=== PATIENT | male | born 1960 | race African-American/Black ===

== ENCOUNTER 2018-03-12 11:32 | Inpatient (IN) | payer MEDICARE, OTHER ==
[~2018-03-12] VITALS: Ht 167.6 cm; Wt 98.4 kg
[~2018-03-12 11:32] MED LIST: ALBU18HF2 INH; AMLO10TA80 PO; ASPI-1158 PO; B50 PO; BECL8.7A5 INH; BUPR300T54 PO; CLON0.3T PO; DICL75TA5 PO; HYDR-4009 PO; HYDR100T31 PO; LABE300T3 PO; METH-612 PO; NIFE60TA77 PO; PANT40TA4 PO; PENT400T11 PO; SIMV20TA6 PO; TRAZ-212 PO; TRIA1TAB3 PO
[2018-03-12] MEDS ORDERED: GLIM2TAB2 PO (19:02)
[2018-03-12] MEDS ORDERED: LEVO100T9 PO (19:02)
[2018-03-12] MEDS ORDERED: XALAO EACHEYE (19:02)
[2018-03-12] MEDS ORDERED: LISI40TA4 PO (19:02)
[2018-03-12] MEDS ORDERED: DORZ10DR9 EACHEYE (19:02)
[2018-03-12] MEDS ORDERED: METO-385 PO (19:02)
[2018-03-12] MEDS ORDERED: ATOR80TA PO (19:02)
[2018-03-12] MEDS ORDERED: DOCU100T PO (19:02)
[2018-03-12] MEDS ORDERED: FURO40TA5 PO (19:02)
[2018-03-12] MEDS ORDERED: ASPI-986 PO (19:02)
[2018-03-12] MEDS ORDERED: CLOP75TA16 PO (19:02)
[2018-03-12] MEDS ORDERED: POTA10CA42 PO (19:02)
[2018-03-12] MEDS ORDERED: PANT20TA3 PO (19:02)
[2018-03-12 20:17] LABS: BASOPHILS % 0.8 % (0.0-2.0); EOSINOPHILS % 2.5 % (0.0-5.0); HEMATOCRIT. 38.9 % (42.0-52.0); HEMOGLOBIN. 12.7 g/dL (14.0-18.0); LYMPHOCYTES % 53.5 % (20.0-50.0); MEAN CORPUSCULAR HEMOGLOBIN 26.8 pg (28.0-32.0); MEAN PLATELET VOLUME 9.6 fl (7.4-10.4); MONOCYTES % 9.4 % (2.0-8.0); NEUTROPHILS % 33.8 % (40.0-76.0); PLATELET 265 x1000/uL (130-400); RED BLOOD CELL COUNT 4.74 mill/uL (4.7-6.1); RED CELL DISTRIBUTION WIDTH 16.8 % (11.6-14.6)
[2018-03-12 20:24] LABS: PROTHROMBIN TIME 9.8 sec (9.1-11.1)
[2018-03-12 20:28] LABS: CHLORIDE 104 mEq/L (98-107)
[2018-03-13] VITALS (9 sets, daily range): BP systolic 120–193; BP diastolic 68–98
[2018-03-13] MEDS ORDERED: BRIM5DRO6 EACHEYE ×2 (00:06→00:12)
[2018-03-13] MEDS ORDERED: CLONIDINE 0.1MG TABLET PO PRN (00:30)
[2018-03-13] MEDS ORDERED: DEXTROSE 50% WATER 50ML SYRINGE IV PRN (00:30)
[2018-03-13] MEDS ORDERED: IPRATROPIUM/ALBUTEROL 0.5-3(2.5)MG/3ML NEB HHN PRN (00:30)
[2018-03-13] MEDS ORDERED: MORPHINE SULFATE 4 MG/ML CPJ (NOT FOR IM USE) IV PRN (01:11)
[2018-03-13] MEDS: BLOOD SUGAR DIAGNOSTIC STRIP TEST SCH ×3 (05:59→16:49)
[2018-03-13] MEDS: INSULIN LISPRO 100 UNITS/ML SUBCUT SCH ×3 (06:07→17:15)
[2018-03-13 07:03] LABS: BASOPHILS % 0.8 % (0.0-2.0); EOSINOPHILS % 2.7 % (0.0-5.0); HEMATOCRIT. 37.5 % (42.0-52.0); HEMOGLOBIN. 12.1 g/dL (14.0-18.0); LYMPHOCYTES % 37.8 % (20.0-50.0); MEAN CORPUSCULAR HEMOGLOBIN 26.2 pg (28.0-32.0); MEAN CORPUSCULAR VOLUME 81.3 fL (80.0-94.0); MEAN PLATELET VOLUME 9.4 fl (7.4-10.4); MONOCYTES % 13.5 % (2.0-8.0); NEUTROPHILS % 45.2 % (40.0-76.0); PLATELET 242 x1000/uL (130-400); RED BLOOD CELL COUNT 4.62 mill/uL (4.7-6.1); RED CELL DISTRIBUTION WIDTH 16.5 % (11.6-14.6)
[2018-03-13 07:17] LABS: CHLORIDE 105 mEq/L (98-107)
[2018-03-13 07:29] LABS: HDL CHOLESTEROL 63 mg/dL (40-59); LDL CHOLESTEROL 95 mg/dL (5-100); T4 FREE 1.22 ng/dL (0.76-1.46)
[2018-03-13] MEDS: BRIMONIDINE 0.2% OPHTH DROPS 5ML EACHEYE SCH ×2 (08:36→17:00)
[2018-03-13] MEDS ORDERED: BARIUM SULFATE 176 GM SUSP.RECON ONE (14:26)
[2018-03-13] MEDS ORDERED: LATANOPROST 0.005% OPHTH DROPS 2.5ML EACHEYE SCH (21:00)
[2018-03-13] MEDS ORDERED: ATORVASTATIN CALCIUM 10MG TABLET PO SCH (21:00)
== END 2018-03-13 21:18 | disposition home or self-care (01) | DRG 199 ==
LOC: ER 11:32 → EDBEDREQ 17:53 → 5WST 21:16 → EDBEDREQTM 21:18 → EDBEDREQ 21:18 → ENRESERV 21:51
PROVIDERS: ADMIT Internal Medicine; ATTEND Internal Medicine
PROC: 5A09357 Assistance with Respiratory Ventilation, Less than 24 Consecutive Hours, Continuous Positive Airway Pressure (ICD-10-PCS; principal; 2018-03-13)
DX: I10 Essential (primary) hypertension (principal); I69.351 Hemiplegia and hemiparesis following cerebral infarction affecting right dominant side; F01.50 Vascular dementia, unspecified severity, without behavioral disturbance, psychotic disturbance, mood disturbance, and anxiety; J02.9 Acute pharyngitis, unspecified; M19.90 Unspecified osteoarthritis, unspecified site; R79.89 Other specified abnormal findings of blood chemistry; E11.9 Type 2 diabetes mellitus without complications; E78.5 Hyperlipidemia, unspecified; R13.10 Dysphagia, unspecified; G47.30 Sleep apnea, unspecified; Z87.891 Personal history of nicotine dependence; I69.321 Dysphasia following cerebral infarction; Z88.8 Allergy status to other drugs, medicaments and biological substances; Z79.82 Long term (current) use of aspirin; Z79.899 Other long term (current) drug therapy; I69.391 Dysphagia following cerebral infarction
CPT/HCPCS: 36415; 70360; 70551; 71045; 74230; 80048; 80061; 82962; 84439; 84443; 92610; 92611; 93005; 99285

== ENCOUNTER 2018-06-07 20:09 | Emergency (ER) | payer MEDICARE ==
[~2018-06-07] VITALS: Ht 172.7 cm; Wt 118.0 kg
[~2018-06-07 20:09] MED LIST changes: -ALBU18HF2 INH; -AMLO10TA80 PO; -ASPI-1158 PO; +ASPI-986 PO; +ATOR80TA PO; -B50 PO; -BECL8.7A5 INH; +BRIM5DRO6 EACHEYE; -BUPR300T54 PO; -CLON0.3T PO; +CLOP75TA16 PO; -DICL75TA5 PO; +DOCU100T PO; +FURO40TA5 PO; +GLIM2TAB2 PO; -HYDR-4009 PO; -LABE300T3 PO; +LEVO100T9 PO; -METH-612 PO; +METO-385 PO; -NIFE60TA77 PO; +PANT20TA3 PO; -PANT40TA4 PO; -PENT400T11 PO; +POTA10CA42 PO; -SIMV20TA6 PO; -TRAZ-212 PO; -TRIA1TAB3 PO; +XALAO EACHEYE
[2018-06-07] MEDS ORDERED: CLONIDINE 0.2MG TABLET PO ONE (20:45)
[2018-06-07 21:20] LABS: BASOPHILS % 0.9 % (0.0-2.0); EOSINOPHILS % 2.4 % (0.0-5.0); HEMATOCRIT. 41.6 % (42.0-52.0); HEMOGLOBIN. 13.5 g/dL (14.0-18.0); LYMPHOCYTES % 48.3 % (20.0-50.0); MEAN CORPUSCULAR HEMOGLOBIN 25.9 pg (28.0-32.0); MEAN CORPUSCULAR VOLUME 80.3 fL (80.0-94.0); MONOCYTES % 8.1 % (2.0-8.0); NEUTROPHILS % 40.3 % (40.0-76.0); PLATELET 243 x1000/uL (130-400); RED BLOOD CELL COUNT 5.19 mill/uL (4.7-6.1); RED CELL DISTRIBUTION WIDTH 15.9 % (11.6-14.6)
[2018-06-07 21:26] LABS: CHLORIDE 104 mEq/L (98-107); PARTIAL THROMBOPLASTIN TIME 28.2 sec (23.4-31.0); PROTHROMBIN TIME 10.1 sec (9.1-11.1)
[2018-06-08] MEDS ORDERED: NIFEDIPINE XL 90MG TAB PO ONE (08:15)
[2018-06-08] MEDS ORDERED: CARVEDILOL 25MG TABLET PO ONE (08:15)
[2018-06-08 11:22] VITALS: BP 200/77
== END 2018-06-08 11:29 | disposition home or self-care (01) ==
LOC: ER 20:09
DX: I10 Essential (primary) hypertension (principal); J45.909 Unspecified asthma, uncomplicated; E11.9 Type 2 diabetes mellitus without complications; R53.1 Weakness; Z86.73 Personal history of transient ischemic attack (TIA), and cerebral infarction without residual deficits; Z79.82 Long term (current) use of aspirin; Z79.899 Other long term (current) drug therapy; Z88.8 Allergy status to other drugs, medicaments and biological substances; Z88.1 Allergy status to other antibiotic agents; Z98.890 Other specified postprocedural states
CPT/HCPCS: 36415; 71045; 84484; 93005; 99284

== ENCOUNTER 2018-06-14 07:51 | Emergency (ER) | payer MEDICARE ==
[~2018-06-14] VITALS: Ht 177.8 cm; Wt 102.0 kg
[2018-06-14] MEDS ORDERED: ONDANSETRON HCL 4MG/2ML INJ IV STA (08:11)
[2018-06-14] MEDS ORDERED: MORPHINE SULFATE 4 MG/ML CPJ (NOT FOR IM USE) IV STA (08:11)
[2018-06-14] MEDS ORDERED: SODIUM CHLORIDE 0.9% 1,000 ML IV ONE (08:11)
[2018-06-14 09:10] LABS: BASOPHILS % 1.2 % (0.0-2.0); EOSINOPHILS % 1.7 % (0.0-5.0); HEMOGLOBIN. 13.8 g/dL (14.0-18.0); LYMPHOCYTES % 43.9 % (20.0-50.0); MEAN CORPUSCULAR HEMOGLOBIN 25.6 pg (28.0-32.0); MEAN CORPUSCULAR VOLUME 80.1 fL (80.0-94.0); MEAN PLATELET VOLUME 9.1 fl (7.4-10.4); MONOCYTES % 5.8 % (2.0-8.0); NEUTROPHILS % 47.4 % (40.0-76.0); PLATELET 268 x1000/uL (130-400); RED BLOOD CELL COUNT 5.37 mill/uL (4.7-6.1); RED CELL DISTRIBUTION WIDTH 15.6 % (11.6-14.6)
[2018-06-14 09:13] LABS: CHLORIDE 106 mEq/L (98-107)
[2018-06-14 09:15] LABS: PROTHROMBIN TIME 10.5 sec (9.1-11.1)
[2018-06-14 10:19] LABS: CLARITY URINE CLEAR (CLEAR); COLOR URINE YELLOW (YELLOW); KETONES URINE NEGATIVE (NEGATIVE); LEUKOCYTE ESTERASE URINE NEGATIVE (NEGATIVE); NITRITE URINE NEGATIVE (NEGATIVE); OCCULT BLOOD URINE NEGATIVE (NEGATIVE); PH URINE 8.5 (4.5-8.0); PROTEIN URINE NEGATIVE (NEGATIVE); SPECIFIC GRAVITY URINE 1.007 (1.005-1.030); UROBILINOGEN URINE 0.2 E.U./dL (0.2-1.0)
[2018-06-14 14:00] VITALS: BP 164/90
== END 2018-06-14 14:00 | disposition home or self-care (01) ==
LOC: ER 08:12
DX: K59.00 Constipation, unspecified (principal)
CPT/HCPCS: 36415; 74176; 80053; 81003; 83690; 85025; 85610; 96361; 96374; 96375; 96376; 99284; J2270; J2405; J7030; Z7610

== ENCOUNTER 2019-02-24 13:29 | Emergency (ER) | payer MEDICARE ==
[~2019-02-24] VITALS: Ht 177.8 cm; Wt 80.0 kg
[~2019-02-24 13:29] MED LIST changes: -CLOP75TA16 PO; +CLOP75TA4 PO
[2019-02-24 14:16] LABS: CLARITY URINE TURBID (CLEAR); COLOR URINE YELLOW (YELLOW); KETONES URINE NEGATIVE (NEGATIVE); LEUKOCYTE ESTERASE URINE 3+ (NEGATIVE); NITRITE URINE NEGATIVE (NEGATIVE); OCCULT BLOOD URINE TRACE (NEGATIVE); PROTEIN URINE 1+ (NEGATIVE); SPECIFIC GRAVITY URINE 1.015 (1.005-1.030); UROBILINOGEN URINE 0.2 E.U./dL (0.2-1.0)
[2019-02-24] MEDS ORDERED: CEFTRIAXONE 1 G PREMIX 50 ML IV ONE (14:30)
[2019-02-24] MEDS ORDERED: CEFTRIAXONE 1,000 MG in DEXTROSE 5% WATER 50 ML IV STA (14:57)
[2019-02-24 15:01] LABS: BASOPHILS % 1.3 % (0.0-2.0); EOSINOPHILS % 2.3 % (0.0-5.0); HEMATOCRIT. 36.2 % (42.0-52.0); HEMOGLOBIN. 12.2 g/dL (14.0-18.0); LYMPHOCYTES % 42.8 % (20.0-50.0); MEAN CORPUSCULAR VOLUME 80.1 fL (80.0-94.0); MEAN PLATELET VOLUME 8.1 fl (7.4-10.4); MONOCYTES % 7.9 % (2.0-8.0); NEUTROPHILS % 45.7 % (40.0-76.0); PLATELET 300 x1000/uL (130-400); RED BLOOD CELL COUNT 4.51 mill/uL (4.7-6.1); RED CELL DISTRIBUTION WIDTH 15.4 % (11.6-14.6)
[2019-02-24 15:06] LABS: CHLORIDE 108 mEq/L (98-107)
[2019-02-24 16:56] VITALS: BP 158/90
== END 2019-02-24 17:02 | disposition home or self-care (01) ==
LOC: ER 13:38
DX: N39.0 Urinary tract infection, site not specified (principal); E11.9 Type 2 diabetes mellitus without complications; I10 Essential (primary) hypertension; Z79.899 Other long term (current) drug therapy; Z88.8 Allergy status to other drugs, medicaments and biological substances
CPT/HCPCS: 36415; 80053; 81003; 85025; 87077; 87086; 87186; 96365; 99283; J0696; J7060

== ENCOUNTER 2019-07-30 10:41 | Emergency (ER) | payer MEDICARE ==
[~2019-07-30] VITALS: Ht 170.2 cm; Wt 73.0 kg
[~2019-07-30 10:41] MED LIST changes: -GLIM2TAB2 PO; +GLIM2TAB30 PO
[2019-07-30] MEDS ORDERED: KETOROLAC 60MG/2ML VIAL IM STA (11:10)
[2019-07-30 12:33] LABS: CLARITY URINE CLEAR (CLEAR); COLOR URINE YELLOW (YELLOW); KETONES URINE NEGATIVE (NEGATIVE); LEUKOCYTE ESTERASE URINE NEGATIVE (NEGATIVE); NITRITE URINE NEGATIVE (NEGATIVE); OCCULT BLOOD URINE NEGATIVE (NEGATIVE); PH URINE 6.5 (4.5-8.0); PROTEIN URINE NEGATIVE (NEGATIVE); SPECIFIC GRAVITY URINE 1.019 (1.005-1.030)
[2019-07-30] MEDS ORDERED: ACETAMINOPHEN 325MG TABLET PO ONE (13:00)
[2019-07-30 15:31] VITALS: BP 126/76
== END 2019-07-30 16:45 | disposition home or self-care (01) ==
LOC: ER 10:41
DX: R07.89 Other chest pain (principal); E11.9 Type 2 diabetes mellitus without complications; I10 Essential (primary) hypertension; Z86.73 Personal history of transient ischemic attack (TIA), and cerebral infarction without residual deficits; Z88.8 Allergy status to other drugs, medicaments and biological substances
CPT/HCPCS: 71045; 81003; 96372; 99284; J1885

== ENCOUNTER 2020-03-18 11:19 | Emergency (ER) | payer MEDICAID, MEDICARE ==
[~2020-03-18] VITALS: Ht 172.7 cm; Wt 84.0 kg
[2020-03-18] MEDS ORDERED: ONDANSETRON HCL 4MG/2ML INJ IV STA (12:19)
[2020-03-18] MEDS ORDERED: MORPHINE SULFATE 4 MG/ML CPJ (NOT FOR IM USE) IV STA (12:19)
[2020-03-18] MEDS ORDERED: SODIUM CHLORIDE 0.9% 1,000 ML IV ONE (12:30)
[2020-03-18 13:02] LABS: BASOPHILS % 0.7 % (0.0-2.0); EOSINOPHILS % 0.3 % (0.0-5.0); HEMATOCRIT. 47.2 % (42.0-52.0); HEMOGLOBIN. 15.4 g/dL (14.0-18.0); LYMPHOCYTES % 25.1 % (20.0-50.0); MEAN CORPUSCULAR HEMOGLOBIN 27.1 pg (28.0-32.0); MEAN PLATELET VOLUME 9.3 fl (7.4-10.4); MONOCYTES % 12.7 % (2.0-8.0); NEUTROPHILS % 61.2 % (40.0-76.0); PLATELET 295 x1000/uL (130-400); RED BLOOD CELL COUNT 5.69 mill/uL (4.7-6.1); RED CELL DISTRIBUTION WIDTH 15.3 % (11.6-14.6)
[2020-03-18 13:09] LABS: CHLORIDE 97 mEq/L (98-107)
[2020-03-18 13:12] LABS: PROTHROMBIN TIME 10.3 sec (9.6-11.0)
[2020-03-18] MEDS ORDERED: CEFTRIAXONE 1 G PREMIX 50 ML IV ONE (14:30)
[2020-03-18] MEDS ORDERED: METRONIDAZOLE 500 MG PREMIX 100 ML IV ONE (14:30)
[2020-03-18 18:00] VITALS: BP 132/76
== END 2020-03-18 18:15 | disposition home or self-care (01) ==
LOC: ER 11:19
DX: Z03.818 Encounter for observation for suspected exposure to other biological agents ruled out (principal); K43.6 Other and unspecified ventral hernia with obstruction, without gangrene; E87.6 Hypokalemia; I10 Essential (primary) hypertension; I69.354 Hemiplegia and hemiparesis following cerebral infarction affecting left non-dominant side; E11.9 Type 2 diabetes mellitus without complications; Z79.899 Other long term (current) drug therapy
CPT/HCPCS: 36415; 74176; 80053; 83690; 84484; 85025; 85610; 87426; 93005; 96361; 96365; 96368; 96375; 99285; J0696; J2270; J2405; J3490; J7030

== ENCOUNTER 2020-06-15 10:27 | Emergency (ER) | payer MEDICAID ==
[~2020-06-15] VITALS: Ht 172.7 cm; Wt 96.0 kg
[~2020-06-15 10:27] MED LIST changes: +CLOP-31 PO; -CLOP75TA4 PO; +PANT20TA17 PO; -PANT20TA3 PO
[2020-06-15] MEDS ORDERED: MORPHINE SULFATE 4 MG/ML CPJ (NOT FOR IM USE) IV STA (10:46)
[2020-06-15 11:47] LABS: BASOPHILS % 1.2 % (0.0-2.0); EOSINOPHILS % 1.6 % (0.0-5.0); HEMATOCRIT. 42.7 % (42.0-52.0); HEMOGLOBIN. 13.9 g/dL (14.0-18.0); MEAN CORPUSCULAR HEMOGLOBIN 26.6 pg (28.0-32.0); MEAN CORPUSCULAR VOLUME 81.3 fL (80.0-94.0); MEAN PLATELET VOLUME 9.2 fl (7.4-10.4); MONOCYTES % 8.1 % (2.0-8.0); NEUTROPHILS % 30.1 % (40.0-76.0); PLATELET 200 x1000/uL (130-400); RED BLOOD CELL COUNT 5.25 mill/uL (4.7-6.1); RED CELL DISTRIBUTION WIDTH 14.3 % (11.6-14.6)
[2020-06-15 11:57] LABS: PROTHROMBIN TIME 10.9 sec (9.6-11.0)
[2020-06-15 12:02] LABS: CHLORIDE 107 mEq/L (98-107)
[2020-06-15] MEDS ORDERED: T3 PO (12:19)
[2020-06-15] MEDS ORDERED: HYDRALAZINE 20MG/ML VIAL IV ONE ×2 (13:45→14:15)
[2020-06-15 16:30] VITALS: BP 169/98
[2020-06-15] MEDS ORDERED: CLONIDINE 0.2MG TABLET PO NR (18:00)
== END 2020-06-15 18:21 | disposition home or self-care (01) ==
LOC: ER 10:27
DX: M54.5 Low back pain (principal); M79.652 Pain in left thigh; I10 Essential (primary) hypertension; E11.9 Type 2 diabetes mellitus without complications; Z86.73 Personal history of transient ischemic attack (TIA), and cerebral infarction without residual deficits
CPT/HCPCS: 36415; 80053; 85025; 85610; 93005; 96374; 96375; 96376; 99285; J0360; J2270

== ENCOUNTER 2020-08-12 17:08 | Emergency (ER) | payer MEDICAID ==
[~2020-08-12] VITALS: Ht 170.2 cm; Wt 91.0 kg
[~2020-08-12 17:08] MED LIST changes: +T3 PO
[2020-08-12] MEDS ORDERED: ONDANSETRON HCL 4MG/2ML INJ IV STA (17:19)
[2020-08-12] MEDS ORDERED: MORPHINE SULFATE 4 MG/ML CPJ (NOT FOR IM USE) IV STA (17:19)
[2020-08-12] MEDS ORDERED: SODIUM CHLORIDE 0.9% 1,000 ML IV ONE (17:30)
[2020-08-12 18:10] LABS: BASOPHILS % 1.9 % (0.0-2.0); EOSINOPHILS % 2.2 % (0.0-5.0); HEMATOCRIT. 41.1 % (42.0-52.0); HEMOGLOBIN. 13.9 g/dL (14.0-18.0); MEAN CORPUSCULAR HEMOGLOBIN 27.1 pg (28.0-32.0); MEAN CORPUSCULAR VOLUME 80.1 fL (80.0-94.0); MEAN PLATELET VOLUME 9.2 fl (7.4-10.4); MONOCYTES % 9.7 % (2.0-8.0); NEUTROPHILS % 33.2 % (40.0-76.0); PLATELET 260 x1000/uL (130-400); RED BLOOD CELL COUNT 5.13 mill/uL (4.7-6.1); RED CELL DISTRIBUTION WIDTH 14.6 % (11.6-14.6)
[2020-08-12 18:14] LABS: CHLORIDE 106 mEq/L (98-107)
[2020-08-12 18:21] LABS: INR 0.9; PROTHROMBIN TIME 10.1 sec (9.6-11.0)
[2020-08-12 20:27] LABS: CLARITY URINE CLEAR (CLEAR); COLOR URINE YELLOW (YELLOW); KETONES URINE TRACE (NEGATIVE); LEUKOCYTE ESTERASE URINE 1+ (NEGATIVE); NITRITE URINE NEGATIVE (NEGATIVE); OCCULT BLOOD URINE 1+ (NEGATIVE); PROTEIN URINE 1+ (NEGATIVE); SPECIFIC GRAVITY URINE 1.029 (1.005-1.030); UROBILINOGEN URINE 0.2 E.U./dL (0.2-1.0)
[2020-08-12] MEDS ORDERED: CEFTRIAXONE 1 G PREMIX 50 ML IV ONE (20:45)
[2020-08-12 20:49] LABS: *AMPHETAMINES SCREEN URINE NEGATIVE (NEGATIVE); *BARBITURATES SCREEN URINE NEGATIVE (NEGATIVE); *BENZODIAZEPINES SCREEN URINE NEGATIVE (NEGATIVE); *COCAINE SCREEN URINE NEGATIVE (NEGATIVE); METHADONE URINE SCREEN NEGATIVE (NEGATIVE)
[2020-08-12 20:50] LABS: CANNABINOID URINE SCREEN NEGATIVE (NEGATIVE); OPIATES URINE SCREEN PRESUMTIVE POSITIVE (NEGATIVE); PHENCYCLIDINE URINE SCREEN NEGATIVE (NEGATIVE)
[2020-08-12] MEDS ORDERED: PYR200 MT (22:26)
[2020-08-12] MEDS ORDERED: IBUP-2029 MT (22:26)
[2020-08-12] MEDS ORDERED: CEPH500T MT (22:26)
[2020-08-13 00:48] VITALS: BP 156/96
== END 2020-08-13 00:55 | disposition home or self-care (01) ==
LOC: ER 17:08
DX: N39.0 Urinary tract infection, site not specified (principal); K42.9 Umbilical hernia without obstruction or gangrene; E27.9 Disorder of adrenal gland, unspecified; I10 Essential (primary) hypertension
CPT/HCPCS: 36415; 71045; 74176; 80053; 80305; 81003; 83690; 84484; 85025; 85610; 87077; 87086; 87186; 93005; 96361; 96365; 96375; 99285; J0696; J2270; J2405; J7030; A4315